=== PATIENT | female | born 1965 | race Caucasian/White ===

== ENCOUNTER → 2021-07-02 11:39 | Outpatient (BNVA) | payer BC, SELFPAY | PROVIDERS: PCP Nurse Practitioner Family; Visit Provider Nurse Practitioner Family | DX: E78.2 Mixed hyperlipidemia (principal); F41.9 Anxiety disorder, unspecified; I10 Essential (primary) hypertension; E55.9 Vitamin D deficiency, unspecified | CPT/HCPCS: 80053; 80061; 81003; 82306; 82607; 83036; 83921; 84207; 84425; 84439; 84443; 85025 ==